=== PATIENT | male | born 1960 | race Caucasian/White ===

== ENCOUNTER 2017-08-24 23:17 | Emergency (ER) | payer BC, MEDICAID ==
[2017-08-24] MEDS: LEVALBUTEROL (NEB) 1.25 MG/0.5 ML AMP HHN (23:53)
[2017-08-24] MEDS: IPRATROPIUM (NEB) 0.5 MG/2.5 ML AMP HHN (23:53)
[2017-08-25 00:12] LABS: AADO2 Arterial 133.2 mmHg (7.0-24.0); Allen Test ACCEPTAB; Arterial Blood Gas Oxygen Sat 98.9 mmHG (95.0-98.0); Arterial COHb 5.7 % (0.0-3.0); Arterial HCO3 30.9 mmol/L (22.0-26.0); Arterial MetHb 0.3 % (0.0-1.5); Arterial Total Hemglobin 14.2 g/dl (12.0-18.0); Arterial pCO2 61.4 mmhg (35-45); MODE MASK - SIMPLE; Site Left Radial
[2017-08-25 00:30] LABS: ADD MAN DIFF? NO
[2017-08-25 00:31] LABS: WHITE BLOOD COUNT 5.3 10^3/ul (4.8-10.8)
[2017-08-25 00:31] LABS: BASOPHIL # 0.1 10^3/ul (0.0-0.1); BASOPHILS % 1.7 % (0.0-2.0); EOSINOPHILS # 0.2 10^3/ul (0.0-0.5); EOSINOPHILS % 2.8 % (0.0-7.0); HEMATOCRIT 41.5 % (42.0-52.0); HEMOGLOBIN 13.6 g/dl (14.0-18.0); LYMPHOCYTES # 1.4 10^3/ul (0.8-2.9); LYMPHOCYTES % 26.6 % (15.0-51.0); MEAN CORPUSCULAR HEMOGLOBIN 38.1 pg (29.0-33.0); MEAN CORPUSCULAR HGB CONC 32.8 g/dl (32.0-37.0); MEAN CORPUSCULAR VOLUME 116.2 fl (82.0-101.0); MEAN PLATELET VOLUME 9.8 fl (7.4-10.4); MONOCYTE # 0.5 10^3/ul (0.3-0.9); MONOCYTES % 9.5 % (0.0-11.0); NEUTROPHIL # 3.1 10^3/ul (1.6-7.5); NEUTROPHILS % 58.8 % (39.0-77.0); PLATELET COUNT 106 10^3/UL (140-415); RED BLOOD COUNT 3.57 10^6/ul (4.70-6.10); RED CELL DISTRIBUTION WIDTH 14.5 % (11.5-14.5)
[2017-08-25] MEDS: morphine 4 MG/ML VIAL IV (00:33)
[2017-08-25] MEDS: SOD CHLORIDE 0.9% 500 ML IV (00:34)
[2017-08-25] MEDS: ONDANSETRON 4 MG INJ IV (00:44)
[2017-08-25] MEDS: METHYLPREDNISOLONE 125 MG INJ IV (00:44)
[2017-08-25 00:54] LABS: ANION GAP 14 (8-16); BLOOD UREA NITROGEN 11 mg/dl (7-20); CALCIUM 8.8 mg/dl (8.4-10.2); CARBON DIOXIDE 34 mmol/L (21-31); CHLORIDE 105 mmol/L (97-110); GLUCOSE 103 mg/dl (70-220); POTASSIUM 4.5 mmol/L (3.5-5.1); SODIUM 148 mmol/L (135-144)
[2017-08-25 01:08] LABS: TROPONIN-I < 0.012 ng/ml (0.000-0.120)
[2017-08-25 01:32] LABS: B-TYPE NATRIURETIC PEPTIDE 52 PG/ML (0-125)
== END 2017-08-25 02:21 | disposition home or self-care (01) ==
LOC: E/R 23:17
DX: J44.1 Chronic obstructive pulmonary disease with (acute) exacerbation (principal); R40.2252 Coma scale, best verbal response, oriented, at arrival to emergency department; R09.02 Hypoxemia; F17.210 Nicotine dependence, cigarettes, uncomplicated; R40.2362 Coma scale, best motor response, obeys commands, at arrival to emergency department; R40.2142 Coma scale, eyes open, spontaneous, at arrival to emergency department
CPT/HCPCS: 36415; 36600; 71045; 80048; 82803; 83880; 84484; 85025; 93005; 94644; 96374; 96375; 99285-25

== ENCOUNTER 2017-11-10 14:16 | Emergency (ER) | payer MEDICAID, BC ==
[2017-11-10] MEDS: OXYCODONE/ACETAMINOPHEN (5/325) TAB PO (17:20)
[2017-11-10] MEDS: ONDANSETRON (ODT) 4 MG TAB ODT (17:20)
[2017-11-10] MEDS: KETOROLAC 30 MG INJ IM (17:21)
== END 2017-11-10 19:10 | disposition home or self-care (01) ==
LOC: FTE 14:16
DX: J44.9 Chronic obstructive pulmonary disease, unspecified (principal); F17.210 Nicotine dependence, cigarettes, uncomplicated
CPT/HCPCS: 29505; 73510; 73562; 73610-RT; 73630; 96372; 99284-25